=== PATIENT | male | born 1960 | race Caucasian/White ===

== ENCOUNTER 2017-03-11 21:27 | Inpatient (IN) | payer BC ==
[2017-03-11] MEDS ORDERED: SODIUM CHLORIDE 0.9% 1,000 ML IV STA ×2 (21:39)
[2017-03-11] MEDS ORDERED: SODIUM CHLORIDE 0.9% 500 ML IV STA (21:39)
[2017-03-11] MEDS ORDERED: ASPIRIN 81 MG CHEW PO STA (21:39)
[2017-03-11] MEDS ORDERED: DILTIAZEM 125 MG in SODIUM CHLORIDE 0.9% 100 ML IV ONE (21:39)
[2017-03-11] MEDS ORDERED: NITROGLYCERIN SL TABS 0.4 MG TAB SUBLINGUAL PRN (21:39)
[2017-03-11] MEDS ORDERED: HEPARIN SODIUM,PORCINE 5,000 UNIT/ML 1 ML VIAL IV PRN (21:39)
[2017-03-11] MEDS ORDERED: DILTIAZEM 5 MG/ML 5 ML VIAL IVP STA (21:39)
[2017-03-11] MEDS ORDERED: HEPARIN SODIUM,PORCINE 5,000 UNIT/ML 1 ML VIAL IV ONE (21:39)
--- NOTE | 2017-03-11 21:43 | ED ---
General Adult HPI - General Chief complaint: Arrhythmia/Palpitations Stated complaint: Palpitations Time Seen by Provider: 03/11/17 21:37 Source: patient, EMS, RN notes reviewed, old records reviewed Mode of arrival: EMS Limitations: no limitations - History of Present Illness Initial comments: This is a 56-year-old male to the ER for evaluation. This patient presents for evaluation of shortness of breath palpitations heart racing. Patient feels very anxious. Patient has history of high blood pressure costal denies drugs or alcohol denies smoking. Denies recent fever cough or congestion, patient has [place] of breath and possibly near syncopal episode earlier today. Patient states he may have had symptoms like this in his past but they did resolve. Patient still slightly weak, dizzy with palpitations. No chest pain. No recent travel history or sick contacts - Related Data Home Medications Medication Instructions Recorded Confirmed Aspirin [Adult Low Dose Aspirin EC] 81 mg PO HS 07/23/16 03/11/17 Enalapril [Vasotec] 5 mg PO DAILY 07/23/16 03/11/17 Ezetimibe/Simvastatin [Vytorin 1 tab PO HS 07/23/16 03/11/17 10-80 mg Tablet] Loratadine [Claritin] 10 mg PO DAILY PRN 07/23/16 03/11/17 Metoprolol Succinate [Toprol XL] 50 mg PO DAILY 07/23/16 03/11/17 [place]-3 Acid Ethyl Esters [Lovaza] 1 gm PO BID 07/23/16 03/11/17 Allergies Allergy/AdvReac Type Severity Reaction Status Date / Time TAPE Allergy Rash/Hives Uncoded 03/11/17 22:14 Review of Systems ROS Statement: Those systems with pertinent positive or pertinent negative responses have been documented in the HPI. ROS Other: All systems not noted in ROS Statement are negative. Past Medical History Past Medical History: Hyperlipidemia, Hypertension History of Any Multi-Drug Resistant Organisms: None Reported Past Surgical History: Heart Catheterization With Stent Additional Past Surgical History / Comment(s): thumb surgery, Past Psychological History: No Psychological Hx Reported Smoking Status: Never smoker Past Alcohol Use History: Occasional Past Drug Use History: None Reported General Exam Limitations: no limitations General appearance: alert, in no apparent distress, anxious Head exam: Present: atraumatic, normocephalic, normal inspection Eye exam: Present: normal appearance, PERRL, EOMI. Absent: scleral icterus, conjunctival injection, periorbital swelling ENT exam: Present: normal exam, mucous membranes moist Neck exam: Present: normal inspection. Absent: tenderness, meningismus, lymphadenopathy Respiratory exam: Present: normal lung sounds bilaterally. Absent: respiratory distress, wheezes, rales, rhonchi, stridor Cardiovascular Exam: Present: tachycardia, irregular rhythm, normal heart sounds. Absent: systolic murmur, diastolic murmur, rubs, gallop, clicks GI/Abdominal exam: Present: soft, normal bowel sounds. Absent: distended, tenderness, guarding, rebound, rigid Extremities exam: Present: normal inspection, full ROM, normal capillary refill. Absent: tenderness, pedal edema, joint swelling, calf tenderness Back exam: Present: normal inspection Neurological exam: Present: alert, oriented X3, CN II-XII intact Psychiatric exam: Present: normal affect, normal mood Skin exam: Present: warm, dry, intact, normal color. Absent: rash Course Vital Signs 03/11/17 03/11/17 21:31 22:19 Temperature 986 F H Pulse Rate 117 H 110 H Respiratory 20 20 Rate Blood Pressure 170/78 164/131 O2 Sat by Pulse 98 96 Oximetry - Reevaluation(s) Reevaluation #1: 03/11/17 23:01 At this time patient achieved adequate rate control Reevaluation #2: 03/11/17 23:01 Spoke with patient and family regarding diagnosis and prognosis, greater than 15 minutes and questions are answered EKG Findings - EKG Comments: EKG Findings:: EKG shows A. fib with RVR rate 121, QRS 90, QTC 400 Medical Decision Making - Medical Decision Making 56-year-old emergency room for evaluation of shortness of breath weakness dizziness lightheadedness and near syncopal. Patient found to be in A. fib with RVR, subjected to rate control, patient's heart rate is able to be controlled at this point. Patient will be admitted for telemetry and cardiology at observation, patient will be placed on anticoagulation - Lab Data Result diagrams: 03/11/17 21:50 Lab Results 03/11/17 Range/Units 21:50 WBC 7.2 (3.8-10.6) k/uL RBC 5.08 (4.30-5.90) m/uL Hgb 14.9 (13.0-17.5) gm/dL Hct 43.6 (39.0-53.0) % MCV 85.9 (80.0-100.0) fL MCH 29.3 (25.0-35.0) pg MCHC 34.1 (31.0-37.0) g/dL RDW 13.4 (11.5-15.5) % Plt Count 211 (150-450) k/uL Neutrophils % 60 % Lymphocytes % 25 % Monocytes % 7 % Eosinophils % 3 % Basophils % 2 % Neutrophils # 4.4 (1.3-7.7) k/uL Lymphocytes # 1.8 (1.0-4.8) k/uL Monocytes # 0.5 (0-1.0) k/uL Eosinophils # 0.2 (0-0.7) k/uL Basophils # 0.1 (0-0.2) k/uL Critical Care Time Critical Care Time: Yes Total Critical Care Time: 31 Disposition Clinical Impression: Atrial fibrillation, Atrial fibrillation with RVR, New onset a-fib Disposition: ADMITTED IP TO THIS HOSP Condition: Fair Referrals: Ronaldo Dunbar MD [Primary Care Provider] - 1-2 days
[2017-03-11] MEDS: HEPARIN SODIUM,PORCINE/D5W PMX 25,000 UNIT in DEXTROSE/WATER 1 500ML.BAG IV SCH (22:14)
[2017-03-11 22:37] LABS: Basophils # (A) 0.1 k/uL (0-0.2); Basophils % (A) 2 %; CH 28.6; CHCM 33.4; Eosinophils # (A) 0.2 k/uL (0-0.7); Eosinophils % (A) 3 %; HCT 43.6 % (39.0-53.0); HDW 2.49; HGB 14.9 gm/dL (13.0-17.5); Luc # (Auto) 0.28; Luc % (Auto) 4; Lymphocytes # (A) 1.8 k/uL (1.0-4.8); Lymphocytes % (A) 25 %; MCH 29.3 pg (25.0-35.0); MCHC 34.1 g/dL (31.0-37.0); MCV 85.9 fL (80.0-100.0); Mean Platelet Volume 7.1; Monocytes # (A) 0.5 k/uL (0-1.0); Monocytes % (A) 7 %; Neutrophils # (A) 4.4 k/uL (1.3-7.7); Neutrophils % (A) 60 %; RBC 5.08 m/uL (4.30-5.90); RDW 13.4 % (11.5-15.5); WBC 7.2 k/uL (3.8-10.6); WBC (Perox) 7.16
[2017-03-11 22:47] LABS: ALT 40 U/L (21-72); AST 33 U/L (17-59); Alkaline Phosphatase 70 U/L (38-126); Anion Gap 9 mmol/L; Blood Urea Nitrogen 19 mg/dL (9-20); Calcium 9.7 mg/dL (8.4-10.2); Carbon Dioxide 26 mmol/L (22-30); Chloride 103 mmol/L (98-107); Glucose 113 mg/dL (74-99); Magnesium 2.1 mg/dL (1.6-2.3); Non-African American GFR(MDRD) >60 (>60 ml/min/1.73 sqM); Potassium 4.3 mmol/L (3.5-5.1); Sodium 138 mmol/L (137-145); Total Bilirubin 1.1 mg/dL (0.2-1.3); Total Protein 7.1 g/dL (6.3-8.2)
[2017-03-11] MEDS ORDERED: LORazepam 2 MG/ML SYRINGE IV PRN (22:59)
[2017-03-11] MEDS ORDERED: LORazepam 2 MG/ML SYRINGE IV STA (22:59)
[2017-03-11 23:03] LABS: Creatine Kinase 111 U/L (55-170)
[2017-03-11 23:16] LABS: Creatine Kinase MB 1.1 ng/mL (0.0-2.4); Troponin I <0.012 ng/mL (0.000-0.034)
[2017-03-11 23:17] LABS: INR 0.9 (<1.1); Prothrombin Time 9.7 sec (9.0-12.0)
[2017-03-11 23:26] LABS: Partial Thromboplastin Time 21.2 sec (22.0-30.0)
[2017-03-12 01:25] VITALS: BMI 24.7
[2017-03-12 04:25] LABS: Mean Platelet Volume 6.8
[2017-03-12 04:36] LABS: Cholesterol 182 mg/dL (<200); HDL Cholesterol 48 mg/dL (40-60); Triglycerides 108 mg/dL (<150)
[2017-03-12 05:29] LABS: Troponin I 0.043 ng/mL (0.000-0.034)
[2017-03-12] MEDS: METOPROLOL TARTRATE 25 MG TAB PO SCH ×2 (08:03→22:45)
--- NOTE | 2017-03-12 09:33 | P.CRDCN ---
History of Present Illness Consult date: 03/12/17 Requesting physician: Ronaldo Dunbar Consult reason: atrial fibrillation Chief complaint: Palpitations History of present illness: This is a pleasant 56-year-old gentleman who follows regularly with Dr. Farrell in the office. He has a known history of coronary artery disease with prior stenting of the LAD in 2000, hypertension, hyperlipidemia, family history of premature coronary artery disease. He presents to the hospital on this occasion with symptoms of feeling his heart racing fast. He states that he was out at a shooting range with his son when the symptoms started. He checked his pulse and found that it was quite irregular and fast. At the symptoms persisted, he became more and more anxious, came to the hospital for further evaluation. EKG performed on arrival here showed atrial fibrillation with a rapid ventricular response. Blood pressure on arrival 170/70 with a heart rate of 120, 98% on room air. CBC 7.2, hemoglobin 14.9, platelet count 211, potassium 4.3, BUN 19, creatinine 0.9.Initial troponin 0.012, subsequent troponin 0.043. Magnesium level 2.1.TSH 2.3. He is currently on IV heparin and IV Cardizem. Continues to be in atrial fibrillation with a controlled ventricular response. Patient denies any prior history of atrial fibrillation, although he does state that he has occasional episodes where he feels he is having an anxiety attack, similar to how he felt yesterday. Past Medical History Past Medical History: Hyperlipidemia, Hypertension History of Any Multi-Drug Resistant Organisms: None Reported Past Surgical History: Heart Catheterization With Stent Additional Past Surgical History / Comment(s): thumb surgery, Past Anesthesia/Blood Transfusion Reactions: No Reported Reaction Date of Last Stent Placement:: March 2001 Past Psychological History: No Psychological Hx Reported Smoking Status: Never smoker Past Alcohol Use History: Occasional Past Drug Use History: None Reported - Past Family History Father History Unknown: Yes Mother Family Medical History: Hypertension Additional Family Medical History / Comment(s): pacemaker. at age 86 Sister(s) Family Medical History: Hyperlipidemia Medications and Allergies Home Medications Medication Instructions Recorded Confirmed Type Aspirin [Adult Low Dose Aspirin EC] 81 mg PO HS 07/23/16 03/11/17 History Enalapril [Vasotec] 5 mg PO DAILY 07/23/16 03/11/17 History Ezetimibe/Simvastatin [Vytorin 1 tab PO HS 07/23/16 03/11/17 History 10-80 mg Tablet] Loratadine [Claritin] 10 mg PO DAILY PRN 07/23/16 03/11/17 History Metoprolol Succinate [Toprol XL] 50 mg PO DAILY 07/23/16 03/11/17 History [place]-3 Acid Ethyl Esters [Lovaza] 1 gm PO BID 07/23/16 03/11/17 History Allergies Allergy/AdvReac Type Severity Reaction Status Date / Time TAPE Allergy Rash/Hives Uncoded 03/11/17 22:14 Physical Exam Vitals: Vital Signs Temp Pulse Pulse Resp BP BP Pulse Ox 03/12/17 08:00 97.6 F 98 18 131/67 98 03/12/17 04:00 98 F 59 L 16 100/58 98 03/12/17 00:39 66 16 138/81 96 03/12/17 00:18 98.6 F 68 18 112/55 97 03/11/17 23:47 82 18 134/63 97 03/11/17 23:38 98.2 F 72 18 173/72 98 03/11/17 22:19 110 H 20 164/131 96 Intake and Output 03/11/17 03/12/17 03/12/17 22:59 06:59 14:59 Intake Total 129.621 360 Output Total 500 Balance -370.379 360 Intake: Intake, IV Titration 129.621 Amount Heparin Sodium,Porcine/ 129.621 D5w Pmx 25,000 unit In Dextrose/Water 1 500ml. bag @ 12 UNITS/KG/HR 19. 59 mls/hr IV .Q24H [facility] Rx #:[id number] Oral 360 Output: Urine 500 Other: Voiding Method Toilet Toilet Urinal Urinal # Voids 1 Weight 86.2 kg PHYSICAL EXAMINATION: HEENT: Head is atraumatic, normocephalic. Pupils equal, round. Neck is supple. There is no elevated jugular venous pressure. HEART EXAMINATION: S1 and S2 irregularly irregular CHEST EXAMINATION: Lungs are clear to auscultation and precussion. No chest wall tenderness is noted on palpation or with deep breathing. ABDOMEN: Soft, nontender. Bowel sounds are heard. No organomegaly noted. EXTREMITIES: 2+ peripheral pulses with no evidence of peripheral edema and no calf tenderness noted. NEUROLOGIC patient is awake, alert and oriented -3. . Results 03/12/17 03:59 03/11/17 21:50 Cardiac Enzymes 03/11/17 03/11/17 03/12/17 Range/Units 21:50 21:50 03:59 AST 33 (17-59) U/L CK-MB (CK-2) 1.1 1.0 (0.0-2.4) ng/mL Troponin I <0.012 0.043 H* (0.000-0.034) ng/mL Coagulation 03/11/17 03/12/17 Range/Units 21:50 03:59 PT 9.7 (9.0-12.0) sec APTT 21.2 L 33.7 H (22.0-30.0) sec Lipids 03/12/17 Range/Units 03:59 Triglycerides 108 (<150) mg/dL Cholesterol 182 (<200) mg/dL HDL Cholesterol 48 (40-60) mg/dL CBC 03/11/17 03/12/17 Range/Units 21:50 03:59 WBC 7.2 (3.8-10.6) k/uL RBC 5.08 (4.30-5.90) m/uL Hgb 14.9 (13.0-17.5) gm/dL Hct 43.6 (39.0-53.0) % Plt Count 211 195 (150-450) k/uL Comprehensive Metabolic Panel 03/11/17 Range/Units 21:50 Sodium 138 (137-145) mmol/L Potassium 4.3 (3.5-5.1) mmol/L Chloride 103 (98-107) mmol/L Carbon Dioxide 26 (22-30) mmol/L BUN 19 (9-20) mg/dL Creatinine 0.99 (0.66-1.25) mg/dL Glucose 113 H (74-99) mg/dL Calcium 9.7 (8.4-10.2) mg/dL AST 33 (17-59) U/L ALT 40 (21-72) U/L Alkaline Phosphatase 70 (38-126) U/L Total Protein 7.1 (6.3-8.2) g/dL Albumin 4.4 (3.5-5.0) g/dL Current Medications Generic Name Dose Route Start Last Admin Trade Name Freq PRN Reason Stop Dose Admin Aspirin 325 mg 03/13/17 09:00 Aspirin PO DAILY [facility] Heparin Sodium (Porcine) 0 unit 03/11/17 21:39 03/12/17 04:50 Heparin IV 4,000 unit Q6HR PRN Administration Low PTT Protocol Diltiazem HCl 125 mg/ Sodium 125 mls @ 5 mls/hr 03/11/17 21:39 03/11/17 22:20 Chloride IV 03/12/17 21:38 5 mg/hr .Q24H ONE 5 mls/hr 5 MG/HR Administration Heparin Sodium/Dextrose 25,000 500 mls @ 19.59 mls/hr 03/11/17 21:45 04:51 unit/ IV Solution IV 15 units/kg/hr .Q24H YOVANNY 24.49 mls/hr Protocol Titration 12 UNITS/KG/HR Lorazepam 1 mg 03/11/17 22:59 Ativan IV Q4HR PRN Anxiety Metoprolol Tartrate 25 mg 03/12/17 09:00 03/12/17 08:03 Lopressor PO 25 mg BID YOVANNY Administration Nitroglycerin 0.4 mg 03/11/17 21:39 Nitrostat SUBLINGUAL Q5M PRN Chest Pain Intake and Output 03/11/17 03/12/17 03/12/17 22:59 06:59 14:59 Intake Total 129.621 360 Output Total 500 Balance -370.379 360 Intake: Intake, IV Titration 129.621 Amount Heparin Sodium,Porcine/ 129.621 D5w Pmx 25,000 unit In Dextrose/Water 1 500ml. bag @ 12 UNITS/KG/HR 19. 59 mls/hr IV .Q24H [facility] Rx #:[id number] Oral 360 Output: Urine 500 Other: Voiding Method Toilet Toilet Urinal Urinal # Voids 1 Weight 86.2 kg 03/12/17 03:59 03/11/17 21:50 EKG Interpretations (text) EKG shows atrial fibrillation with a rapid ventricular response. Assessment and Plan Plan: Assessment and plan #1 atrial fibrillation with rapid ventricular response, appears to be of new onset. Normal TSH. #2 known history of coronary artery disease with prior LAD stenting in 2000, at that time patient also had a 50% lesion in the circumflex. #3 hypertension #4 hyperlipidemia #5 family history of premature coronary artery disease Plan We will obtain an echocardiogram with Doppler study. TSH was normal. Decrease aspirin to 81 mg daily. Continue IV heparin. If the patient's LV function is normal, consider giving the patient a dose of Rythmol. Further recommendations will be based on these findings and the patient's clinical course. DNP note has been reviewed, I agree with a documented findings and plan of care. Patient was seen and examined.
[2017-03-12 12:10] LABS: Creatine Kinase MB 1.1 ng/mL (0.0-2.4); Troponin I 0.018 ng/mL (0.000-0.034)
[2017-03-12] MEDS ORDERED: Phosphorus Replacement Protoco 1 EACH MISC MISCELLANE PRN (12:53)
[2017-03-12] MEDS: SODIUM PHOSPHATE 10 MMOL in SODIUM CHLORIDE 0.9% 250 ML IVPB SCH ×2 (17:28→18:46)
[2017-03-12] MEDS ORDERED: ATORVASTATIN 80 MG TAB PO SCH (21:00)
[2017-03-12] MEDS: HEPARIN SODIUM,PORCINE/D5W PMX 25,000 UNIT in DEXTROSE/WATER 1 500ML.BAG IV SCH (22:54)
[2017-03-13 07:24] LABS: Basophils % (A) 0 %; CH 28.6; CHCM 32.7; Eosinophils # (A) 0.2 k/uL (0-0.7); Eosinophils % (A) 5 %; HCT 41.4 % (39.0-53.0); HDW 2.42; HGB 13.4 gm/dL (13.0-17.5); Luc # (Auto) 0.17; Luc % (Auto) 4; Lymphocytes % (A) 44 %; MCH 28.5 pg (25.0-35.0); MCHC 32.4 g/dL (31.0-37.0); MCV 87.9 fL (80.0-100.0); Mean Platelet Volume 7.3; Monocytes # (A) 0.3 k/uL (0-1.0); Monocytes % (A) 7 %; Neutrophils # (A) 1.8 k/uL (1.3-7.7); Neutrophils % (A) 40 %; RBC 4.71 m/uL (4.30-5.90); RDW 13.5 % (11.5-15.5); WBC 4.5 k/uL (3.8-10.6); WBC (Perox) 4.51
[2017-03-13 08:06] LABS: Anion Gap 7 mmol/L; Blood Urea Nitrogen 13 mg/dL (9-20); Calcium 9.1 mg/dL (8.4-10.2); Carbon Dioxide 26 mmol/L (22-30); Chloride 108 mmol/L (98-107); Glucose 98 mg/dL (74-99); Non-African American GFR(MDRD) >60 (>60 ml/min/1.73 sqM); Phosphorous 3.6 mg/dL (2.5-4.5); Potassium 4.4 mmol/L (3.5-5.1); Sodium 141 mmol/L (137-145)
--- NOTE | 2017-03-13 08:23 | P.HPIM ---
History of Present Illness H&P Date: 03/12/17 Chief Complaint: Shortness of breath, heart palpitations Patient is a 56-year-old male, patient of Dr. Dunbar in the outpatient setting, with medical history significant for coronary artery disease with stent placement, hyperlipidemia and hypertension. Patient presented to the emergency department with complaints of heart palpitations and shortness of breath and feeling anxious. Patient states he was out of the shooting range with his son when symptoms started. No history of recent illness , fevers, chills, chest pain, abdominal pain, leg swelling or leg pain. No previous history of atrial fibrillation. EKG in the emergency department with evidence of atrial fibrillation with a rapid ventricular response. Patient was found to have hypophosphatemia with a phosphorus of 2, TSH within normal range of 2.3, troponins 0.012, 0.043. Blood pressure on arrival 170/78. Patient was started on IV Cardizem and IV heparin and admitted to the medical floor with consult to cardiology. Patient is currently in atrial fibrillation with controlled ventricular rate. Blood pressure 131/67. Echocardiogram with Doppler pending. Past Medical History Past Medical History: Hyperlipidemia, Hypertension History of Any Multi-Drug Resistant Organisms: None Reported Past Surgical History: Heart Catheterization With Stent Additional Past Surgical History / Comment(s): thumb surgery, Past Anesthesia/Blood Transfusion Reactions: No Reported Reaction Date of Last Stent Placement:: March 2001 Past Psychological History: No Psychological Hx Reported Smoking Status: Never smoker Past Alcohol Use History: Occasional Past Drug Use History: None Reported - Past Family History Father History Unknown: Yes Mother Family Medical History: Hypertension Additional Family Medical History / Comment(s): pacemaker. at age 86 Sister(s) Family Medical History: Hyperlipidemia Medications and Allergies Home Medications Medication Instructions Recorded Confirmed Type Aspirin [Adult Low Dose Aspirin EC] 81 mg PO HS 07/23/16 03/11/17 History Enalapril [Vasotec] 5 mg PO DAILY 07/23/16 03/11/17 History Ezetimibe/Simvastatin [Vytorin 1 tab PO HS 07/23/16 03/11/17 History 10-80 mg Tablet] Loratadine [Claritin] 10 mg PO DAILY PRN 07/23/16 03/11/17 History Metoprolol Succinate [Toprol XL] 50 mg PO DAILY 07/23/16 03/11/17 History [place]-3 Acid Ethyl Esters [Lovaza] 1 gm PO BID 07/23/16 03/11/17 History Allergies Allergy/AdvReac Type Severity Reaction Status Date / Time TAPE Allergy Rash/Hives Uncoded 03/11/17 22:14 Physical Exam Vitals: Vital Signs Temp Pulse Pulse Resp BP BP Pulse Ox 03/12/17 12:00 98.1 F 66 16 112/59 96 03/12/17 08:00 97.6 F 98 18 131/67 98 03/12/17 04:00 98 F 59 L 16 100/58 98 03/12/17 00:39 66 16 138/81 96 03/12/17 00:18 98.6 F 68 18 112/55 97 03/11/17 23:47 82 18 134/63 97 03/11/17 23:38 98.2 F 72 18 173/72 98 03/11/17 22:19 110 H 20 164/131 96 Intake and Output 03/11/17 03/12/17 03/12/17 22:59 06:59 14:59 Intake Total 129.621 360 Output Total 500 Balance -370.379 360 Intake: Intake, IV Titration 129.621 Amount Heparin Sodium,Porcine/ 129.621 D5w Pmx 25,000 unit In Dextrose/Water 1 500ml. bag @ 12 UNITS/KG/HR 19. 59 mls/hr IV .Q24H [facility] Rx #:[id number] Oral 360 Output: Urine 500 Other: Voiding Method Toilet Toilet Urinal Urinal # Voids 1 Weight 86.2 kg GENERAL: Pt awake and alert, well-appearing, well-nourished, and in no acute distress. HEAD: Atraumatic, normocephalic. EYES: Pupils equal, round, and reactive to light, sclera anicteric, conjunctiva are normal. ENT: Moist mucous membranes. NECK:Supple without lymphadenopathy or JVD. LUNGS: Breath sounds clear to auscultation bilaterally. No wheezes, rales, or rhonchi. HEART: Heart S1, S2, no S3 or S4. Regular rate and rhythm. No murmurs, rubs or gallops. ABDOMEN: Soft, nontender, nondistended, normoactive bowel sounds. No guarding, no rebound. No masses or organomegaly appreciated. EXTREMITIES: 2+ peripheral pulses. No edema. No calf tenderness. NEUROLOGICAL: Pt oriented x 3. No focal deficits noted. Strength and sensation grossly intact. PSYCH: Normal mood, normal affect. SKIN: Warm, dry, intact. Normal turgor. No rashes or lesions. Results CBC & Chem 7: 03/12/17 03:59 03/11/17 21:50 Labs: Abnormal Lab Results - Last 24 Hours (Table) 03/11/17 03/11/17 03/12/17 Range/Units 21:50 21:50 03:59 APTT 21.2 L 33.7 H (22.0-30.0) sec Glucose 113 H (74-99) mg/dL Phosphorus 2.0 L (2.5-4.5) mg/dL Troponin I (0.000-0.034) ng/mL LDL Cholesterol, Calc (0-99) mg/dL 03/12/17 03/12/17 03/12/17 Range/Units 03:59 03:59 10:48 APTT 48.4 H (22.0-30.0) sec Glucose (74-99) mg/dL Phosphorus (2.5-4.5) mg/dL Troponin I 0.043 H* (0.000-0.034) ng/mL LDL Cholesterol, Calc 112 H (0-99) mg/dL Thrombosis Risk Factor Assmnt - DVT/VTE Prophylaxis DVT/VTE Prophylaxis: Pharmacologic Prophylaxis ordered - Choose All That Apply Any of the Below Risk Factors Present?: Yes Each Factor Represents 1 point: Age 41-60 years Other Risk Factors: No Other congenital or acquired thrombophilia - If yes, enter type in comment: No Thrombosis Risk Factor Assessment Total Risk Factor Score: 1 Thrombosis Risk Factor Assessment Level: Low Risk Assessment and Plan Plan: Impression and plan: 1. New onset atrial fibrillation with rapid ventricular response, present on admission. Cardiology service on consult, recommendations noted. Continue Cardizem drip at 5 mg per hour, continue heparin drip, continue cardiac monitoring. Echocardiogram pending. 2. Coronary artery disease with prior stent placement to LAD in 2000 with known 50% lesion and circumflex. Continue aspirin 81 mg daily. 3. Hypertension. Continue metoprolol 25 mg by mouth twice a day. 4. Hyperlipidemia. Continue Lipitor 80 mg at night, continue Zetia 10 mg daily. 5. Hypophosphatemia, present on admission. Replace phosphorus per protocol. 6. Anxiety suspect associated with atrial fibrillation. Continue Ativan 1 mg IV every 4 hours when necessary. Continue to monitor patient. Continue current medications. Continue continue DVT prophylaxis. Continue to follow cardiology service. Await result of echocardiogram. The above impression and plan have been discussed and directed by Dr. Gloria. More PERALTA acting as scribe for Dr. Gloria.
[2017-03-13] MEDS: METOPROLOL TARTRATE 25 MG TAB PO SCH (08:28)
[2017-03-13] MEDS ORDERED: ASPIRIN 81 MG CHEW PO SCH (09:00)
[2017-03-13] MEDS ORDERED: EZETIMIBE 10 MG TAB PO SCH (09:00)
[2017-03-13] MEDS ORDERED: ASPIRIN 325 MG TAB PO SCH (09:00)
[2017-03-13 09:29] VITALS: RESP 18
[2017-03-13 12:15] VITALS: BP 151/75; PULSE 49; TEMP 96.8
--- NOTE | 2017-03-13 13:31 | P.PN ---
Subjective Principal diagnosis: Paroxysmal atrial fibrillation Patient is a 56-year-old male, patient of Dr. Dunbar in the outpatient setting, with medical history significant for coronary artery disease with stent placement, hyperlipidemia and hypertension. Patient presented to the emergency department with complaints of heart palpitations and shortness of breath and feeling anxious. Patient states he was out of the shooting range with his son when symptoms started. No history of recent illness , fevers, chills, chest pain, abdominal pain, leg swelling or leg pain. No previous history of atrial fibrillation. EKG in the emergency department with evidence of atrial fibrillation with a rapid ventricular response. Patient was found to have hypophosphatemia with a phosphorus of 2, TSH within normal range of 2.3, troponins 0.012, 0.043. Blood pressure on arrival 170/78. Patient was started on IV Cardizem and IV heparin and admitted to the medical floor with consult to cardiology. Patient is currently in atrial fibrillation with controlled ventricular rate. Blood pressure 131/67. Echocardiogram with Doppler pending. 03/13/2017: Patient is reevaluated on selective care unit where he is currently laying in bed. According to chart and patient, patient converted into normal sinus rhythm around 2 PM yesterday and has stayed in normal sinus rhythm. Patient is feeling well. Has no complaints. Labs reviewed, unremarkable. Patient remains on IV heparin. IV Cardizem has been discontinued. Echocardiogram results pending. Awaiting cardiology recommendations prior to discharge. Objective - Vital Signs Vital signs: Vital Signs Temp 96.8 F L 03/13/17 12:00 Pulse 49 L 03/13/17 12:00 Resp 18 03/13/17 12:00 BP 151/75 03/13/17 12:00 Pulse Ox 99 03/13/17 12:00 Intake & Output 03/12/17 03/13/17 03/13/17 18:59 06:59 18:59 Intake Total 720 370.379 240 Output Total 1800 2200 900 Balance -0986 -1829.621 -660 Weight 82.6 kg Intake: Intake, IV Titration 370.379 0 Amount Heparin Sodium,Porcine/ 370.379 D5w Pmx 25,000 unit In Dextrose/Water 1 500ml. bag @ 12 UNITS/KG/HR 19. 59 mls/hr IV .Q24H [facility] Rx #:[id number] Sodium Phosphate 10 mmol 0 In Sodium Chloride 0.9% 250 ml @ 125 mls/hr IVPB Q2H [facility] Rx#:[id number] Oral 720 240 Output: Urine 1800 2200 900 Other: Voiding Method Toilet Toilet Toilet Urinal Urinal Urinal # Voids 4 # Bowel Movements 0 - Exam GENERAL: Pt awake and alert, well-appearing, well-nourished, and in no acute distress. HEAD: Atraumatic, normocephalic. EYES: Pupils equal, round, and reactive to light, sclera anicteric, conjunctiva are normal. ENT: Moist mucous membranes. NECK:Supple without lymphadenopathy or JVD. LUNGS: Breath sounds clear to auscultation bilaterally. No wheezes, rales, or rhonchi. HEART: Heart S1, S2, no S3 or S4. Regular rate and rhythm. No murmurs, rubs or gallops. ABDOMEN: Soft, nontender, nondistended, normoactive bowel sounds. No guarding, no rebound. No masses or organomegaly appreciated. EXTREMITIES: 2+ peripheral pulses. No edema. No calf tenderness. NEUROLOGICAL: Pt oriented x 3. No focal deficits noted. Strength and sensation grossly intact. PSYCH: Normal mood, normal affect. SKIN: Warm, dry, intact. Normal turgor. No rashes or lesions. - Labs CBC & Chem 7: 03/13/17 06:55 03/13/17 06:45 Labs: Abnormal Lab Results - Last 24 Hours (Table) 03/13/17 03/13/17 Range/Units 06:45 06:55 APTT 40.1 H (22.0-30.0) sec Chloride 108 H (98-107) mmol/L Assessment and Plan Plan: Impression and plan: 1. New onset paroxysmal atrial fibrillation with rapid ventricular response, present on admission, currently in sinus rhythm. Cardiology service on consult , recommendations noted. Patient remains on IV heparin. Continue cardiac monitoring. Echocardiogram pending. 2. Coronary artery disease with prior stent placement to LAD in 2000 with known 50% lesion and circumflex. Continue aspirin 81 mg daily. 3. Hypertension. Continue metoprolol 25 mg by mouth twice a day. 4. Hyperlipidemia. Continue Lipitor 80 mg at night, continue Zetia 10 mg daily. 5. Hypophosphatemia, present on admission, resolved. 6. Anxiety suspect associated with atrial fibrillation. Continue Ativan 1 mg IV every 4 hours when necessary. Continue to monitor patient. Continue current medications. Continue continue DVT prophylaxis. Continue to follow cardiology service. Possible discharge later today. The above impression and plan have been discussed and directed by Dr. Gloria. More PERALTA acting as scribe for Dr. Gloria.
--- NOTE | 2017-03-13 15:33 | P.PN ---
Subjective Principal diagnosis: Paroxysmal atrial fibrillation with RVR This is a pleasant 56-year-old gentleman who follows with Dr. Farrell in the office. 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 Presented to the hospital with symptoms of feeling his heart racing and overall not feeling well. On checking his pulse he found that it was quite irregular and fast. He was hooked up to a 12-lead ECG machine outpatient and was found to be in atrial fibrillation with rapid ventricular response. EKG performed on arrival here also showed atrial fibrillation with rapid ventricular response. He was put on IV Cardizem and IV heparin. Inverted to sinus rhythm yesterday. He is maintaining sinus rhythm. He is feeling quite a bit better. Objective - Vital Signs Vital signs: Vital Signs Temp 96.8 F L 03/13/17 12:00 Pulse 49 L 03/13/17 12:00 Resp 18 03/13/17 12:00 BP 151/75 03/13/17 12:00 Pulse Ox 99 03/13/17 12:00 Intake & Output 03/12/17 03/13/17 03/13/17 18:59 06:59 18:59 Intake Total 720 370.379 480 Output Total 1800 2200 900 Balance -9650 -2669.621 -420 Weight 82.6 kg Intake: Intake, IV Titration 370.379 0 Amount Heparin Sodium,Porcine/ 370.379 D5w Pmx 25,000 unit In Dextrose/Water 1 500ml. bag @ 12 UNITS/KG/HR 19. 59 mls/hr IV .Q24H YOVANNY Rx #:[id number] Sodium Phosphate 10 mmol 0 In Sodium Chloride 0.9% 250 ml @ 125 mls/hr IVPB Q2H YOVANNY Rx#:[id number] Oral 720 480 Output: Urine 1800 2200 900 Other: Voiding Method Toilet Toilet Toilet Urinal Urinal Urinal # Voids 4 # Bowel Movements 0 - Exam PHYSICAL EXAMINATION: HEENT: Head is atraumatic, normocephalic. Pupils equal, round. Neck is supple. There is no elevated jugular venous pressure. HEART EXAMINATION: Heart sounds regular, S1 and S2 normal. No murmur or gallop heard. CHEST EXAMINATION: Lungs are clear to auscultation and precussion. No chest wall tenderness is noted on palpation or with deep breathing. ABDOMEN: Soft, nontender. Bowel sounds are heard. No organomegaly noted. EXTREMITIES: 2+ peripheral pulses with no evidence of peripheral edema and no calf tenderness noted. NEUROLOGIC patient is awake, alert and oriented x3. . - Labs CBC & Chem 7: 03/13/17 06:55 03/13/17 06:45 Labs: Abnormal Lab Results - Last 24 Hours (Table) 03/13/17 03/13/17 Range/Units 06:45 06:55 APTT 40.1 H (22.0-30.0) sec Chloride 108 H (98-107) mmol/L Assessment and Plan Plan: Assessment and plan #1 paroxysmal atrial fibrillation with rapid ventricular response #2 known history of coronary artery disease with prior LAD stenting in 2000 and known 50% lesion in the circumflex #3 hypertension #4 hyperlipidemia #5 family history of premature coronary artery disease Cardiac standpoint, 2-D echo with Doppler was obtained, awaiting results. TSH was normal. Medications were reviewed and will continue the same. Patient will see Dr. Farrell in the office on March 18 at 2:30 PM. Long-term anticoagulation to be discussed as an outpatient. WAY INSPECTOR note has been reviewed, I agree with a documented findings and plan of care. Patient was seen and examined.
--- NOTE | 2017-03-13 15:43 | P.DS ---
Providers Date of admission: 03/11/17 21:39 Expected date of discharge: 03/13/17 Attending physician: Ronaldo Dunbar Consults: Cardiology Primary care physician: Ronaldo Dunbar [facility] Hospital Course: Patient is a 56-year-old male, patient of Dr. Dunbar in the outpatient setting, with medical history significant for coronary artery disease with stent placement, hyperlipidemia and hypertension. Patient presented to the emergency department with complaints of heart palpitations and shortness of breath and feeling anxious. Patient states he was [place] the [place] with his son when symptoms started. No history of recent illness , fevers, chills, chest pain, abdominal pain, leg swelling or leg pain. No previous history of atrial fibrillation. EKG in the emergency department with evidence of atrial fibrillation with a rapid ventricular response. Patient was found to have hypophosphatemia with a phosphorus of 2, TSH within normal range of 2.3, troponins 0.012, 0.043. Blood pressure on arrival 170/78. Patient was started on IV Cardizem and IV heparin and admitted to the medical floor with consult to cardiology. Patient is currently in atrial fibrillation with controlled ventricular rate. Blood pressure 131/67. Echocardiogram with Doppler pending. Patient converted into normal sinus rhythm and IV heparin and IV Cardizem was discontinued. From a cardiology standpoint, patient was stable for discharge to home with follow-up in the outpatient setting where they will talk about possible anticoagulation. Patient was felt stable from a medical standpoint for discharge to home with follow-up in the outpatient setting. Discharge diagnoses: 1. New onset paroxysmal atrial fibrillation with rapid ventricular response, present on admission, currently in sinus rhythm. 2. Coronary artery disease with prior stent placement to LAD in 2000 with known 50% lesion and circumflex. 3. Hypertension. 4. Hyperlipidemia. 5. Hypophosphatemia, present on admission, resolved. 6. Anxiety suspect associated with atrial fibrillation. The above impression and plan have been discussed and directed by Dr. Gloria. More PERALTA acting as scribe for Dr. Gloria. Pertinent Studies: EKG; echocardiogram with Doppler Patient Condition at Discharge: Good Plan - Discharge Summary New Discharge Prescriptions: Metoprolol Tartrate [Lopressor] 25 mg PO BID #60 tab Discharge Medication List Aspirin [Adult Low Dose Aspirin EC] 81 mg PO HS 07/23/16 [History] Ezetimibe/Simvastatin [Vytorin 10-80 mg Tablet] 1 tab PO HS 07/23/16 [History] Loratadine [Claritin] 10 mg PO DAILY PRN 07/23/16 [History] [place]-3 Acid Ethyl Esters [Lovaza] 1 gm PO BID 07/23/16 [History] Metoprolol Tartrate [Lopressor] 25 mg PO BID #60 tab 03/13/17 [Rx] Follow up Appointment(s)/Referral(s): Samm Farrell MD [STAFF PHYSICIAN] - 03/18/17 2:30 pm Ronaldo Dunbar MD [Primary Care Provider] - 1-2 days Discharge Disposition: HOME SELF-CARE
--- NOTE | 2017-03-18 15:56 | ECHOF ---
Referral Reason:afib MEASUREMENTS -------- HEIGHT: 182.9 cm WEIGHT: 86.2 kg BP: 131/67 RVIDd: 2.7 cm (< 3.3) IVSd: 1.2 cm (0.6 - 1.1) LVIDd: 4.8 cm (3.9 - 5.3) LVPWd: 1.2 cm (0.6 - 1.1) IVSs: 1.3 cm LVIDs: 3.4 cm LVPWs: 1.3 cm LAESV Index (A-L): 30.39 ml/m Ao Diam: 3.3 cm (2.0 - 3.7) AV Cusp: 1.6 cm (1.5 - 2.6) LA Diam: 3.3 cm (2.7 - 3.8) MV EXCURSION: 20.824 mm (> 18.000) MV EF SLOPE: 226 mm/s (70 - 150) EPSS: 0.5 cm RAP: 5.00 mmHg RVSP: 15.42 mmHg FINDINGS -------- Atrial fibrillation. This was a technically good study. There is mild concentric left ventricular hypertrophy. Overall left ventricular systolic function is normal with, an EF between 55 - 60 %. The right ventricle is normal in size. The right ventricular systolic function is normal. LA is midly dilated 29-33ml/m2. The right atrium is normal in size. Aortic valve is trileaflet and is mildly thickened. There is no evidence of aortic regurgitation. There is no evidence of aortic stenosis. The mitral valve leaflets are mildly thickened. There is trace mitral regurgitation. Trace tricuspid regurgitation present. There is no evidence of pulmonary hypertension. The right ventricular systolic pressure, as measured by Doppler, is 15.42mmHg. The pulmonic valve is normal. The aortic root size is normal. There is no pericardial effusion. CONCLUSIONS -------- 1. Atrial fibrillation. 2. The right ventricular systolic pressure, as measured by Doppler, is 15.42mmHg. 3. The aortic root size is normal. 4. There is no pericardial effusion. 5. This was a technically good study. 6. There is mild concentric left ventricular hypertrophy. 7. Overall left ventricular systolic function is normal with, an EF between 55 - 60 %. 8. LA is midly dilated 29-33ml/m2. 9. Aortic valve is trileaflet and is mildly thickened. 10. The mitral valve leaflets are mildly thickened. 11. There is trace mitral regurgitation. 12. Trace tricuspid regurgitation present. [employer]ADI[employer] CONVERTER OPERATOR: Yovana Moran RDCS
== END 2017-03-13 18:13 | disposition home or self-care (01) | DRG 310 ==
LOC: EC 21:27 → 6SEL 21:39
PROVIDERS: ADMIT Family Medicine; ATTEND Family Medicine
DX: I48.0 Paroxysmal atrial fibrillation (principal); E83.39 Other disorders of phosphorus metabolism; I10 Essential (primary) hypertension; E78.5 Hyperlipidemia, unspecified; F41.9 Anxiety disorder, unspecified; I25.10 Atherosclerotic heart disease of native coronary artery without angina pectoris; Z95.5 Presence of coronary angioplasty implant and graft; Z79.82 Long term (current) use of aspirin; Z79.899 Other long term (current) drug therapy; Z82.49 Family history of ischemic heart disease and other diseases of the circulatory system
CPT/HCPCS: 36415; 80048; 80053; 80061; 82550; 82553; 83735; 84100; 84443; 84484; 85025; 85049; 85610; 85730; 93005; 93306; 96365; 96366; 96368; 96375; 96376; 99291

== ENCOUNTER 2020-07-21 11:21 | Emergency (ER) | payer BC ==
[2020-07-21 11:32] VITALS: BP 158/96; PULSE 61; RESP 16; TEMP 98.6
[2020-07-21] MEDS ORDERED: LORazepam 2 MG/ML INJ IM STA (11:46)
--- NOTE | 2020-07-21 11:48 | ED ---
General Adult HPI - General Chief complaint: Anxiety Stated complaint: Panic Attack Time Seen by Provider: 07/21/20 11:30 Source: patient, RN notes reviewed, old records reviewed Mode of arrival: wheelchair Limitations: no limitations - History of Present Illness Initial comments: This is a 59-year-old male who presents emergency department stating that he has been suffering from anxiety for quite a few years but it's been getting worse over the last couple weeks since he's bottom Home. Patient states he has at least one panic attack a day if not more. Patient denies any difficulty breathing chest pain or palpitation. Patient denies any fever chills or cough. Patient denies any abdominal pain patient denies nausea vomiting or diarrhea patient states he has had anxiety for years but more recently with retiring and swelling of his home feels as though that is causing him more anxiety. - Related Data Home Medications Medication Instructions Recorded Confirmed Aspirin [Adult Low Dose Aspirin EC] 81 mg PO HS 07/23/16 03/11/17 Ezetimibe/Simvastatin [Vytorin 1 tab PO HS 07/23/16 03/11/17 10-80 mg Tablet] Loratadine [Claritin] 10 mg PO DAILY PRN 07/23/16 03/11/17 [place]-3 Acid Ethyl Esters [Lovaza] 1 gm PO BID 07/23/16 03/11/17 Previous Rx's Medication Instructions Recorded Metoprolol Tartrate [Lopressor] 25 mg PO BID #60 tab 03/13/17 ALPRAZolam [Xanax] 0.25 mg PO Q8HR PRN 3 Days #21 tab 07/21/20 Allergies Allergy/AdvReac Type Severity Reaction Status Date / Time TAPE Allergy Rash/Hives Uncoded 07/21/20 11:32 Review of Systems ROS Statement: Those systems with pertinent positive or pertinent negative responses have been documented in the HPI. ROS Other: All systems not noted in ROS Statement are negative. Past Medical History Past Medical History: Hyperlipidemia, Hypertension History of Any Multi-Drug Resistant Organisms: None Reported Past Surgical History: Heart Catheterization With Stent Additional Past Surgical History / Comment(s): thumb surgery, Past Anesthesia/Blood Transfusion Reactions: No Reported Reaction Date of Last Stent Placement:: March 2001 Past Psychological History: No Psychological Hx Reported Smoking Status: Never smoker Past Alcohol Use History: Occasional Past Drug Use History: None Reported - Past Family History Father History Unknown: Yes Mother Family Medical History: Hypertension Additional Family Medical History / Comment(s): pacemaker. at age 86 Sister(s) Family Medical History: Hyperlipidemia General Exam - General Exam Comments Initial Comments: GENERAL: Patient is well-developed and well-nourished. Patient is nontoxic and well- hydrated and is in mild distress. ENT: Neck is soft and supple. No significant lymphadenopathy is noted. Oropharynx is clear. Moist mucous membranes. Neck has full range of motion without eliciting any pain. EYES: The sclera were anicteric and conjunctiva were pink and moist. Extraocular movements were intact and pupils were equal round and reactive to light. Eyelids were unremarkable. PULMONARY: Unlabored respirations. Good breath sounds bilaterally. No audible rales r honchi or wheezing was noted. CARDIOVASCULAR: There is a regular rate and rhythm without any murmurs gallops or rubs. ABDOMEN: Soft and nontender with normal bowel sounds. SKIN: Skin is clear with no lesions or rashes and otherwise unremarkable. NEUROLOGIC: Patient is alert and oriented x3. Cranial nerves II through XII are grossly intact. Motor and sensory are also intact. Normal speech, volume and content. Symmetrical smile. MUSCULOSKELETAL: Normal extremities with adequate strength and full range of motion. LYMPHATICS: No significant lymphadenopathy is noted PSYCHIATRIC: Patient is very anxious Limitations: no limitations Course Vital Signs 07/21/20 07/21/20 11:28 12:08 Temperature 98.6 F 98.6 F Pulse Rate 61 61 Respiratory 16 16 Rate Blood Pressure 158/96 158/96 O2 Sat by Pulse 99 99 Oximetry Disposition Clinical Impression: Acute anxiety Disposition: HOME SELF-CARE Instructions (If sedation given, give patient instructions): Generalized Anxiety Disorder (ED) Prescriptions: ALPRAZolam [Xanax] 0.25 mg PO Q8HR PRN 3 Days #21 tab PRN Reason: Anxiety Is patient prescribed a controlled substance at d/c from ED?: Yes When asked, does pt state using other controlled substances?: No Referrals: Ronaldo Dunbar MD [Primary Care Provider] - 1-2 days
== END 2020-07-21 12:09 | disposition home or self-care (01) ==
LOC: EC 11:21
DX: F41.9 Anxiety disorder, unspecified (principal); E78.5 Hyperlipidemia, unspecified; Z79.82 Long term (current) use of aspirin; Z79.899 Other long term (current) drug therapy; Z91.09 Other allergy status, other than to drugs and biological substances
CPT/HCPCS: 99283; 96372; J2060

== ENCOUNTER 2021-11-09 10:27 | Emergency (ER) | payer BC ==
[2021-11-09 11:05] VITALS: RESP 18
--- NOTE | 2021-11-09 11:20 | ED ---
General Adult HPI - General Chief complaint: Fever Stated complaint: N/V,Headache,Fatigue Time Seen by Provider: 11/09/21 11:10 Source: patient, RN notes reviewed, old records reviewed Mode of arrival: ambulatory Limitations: no limitations - History of Present Illness Initial comments: 61-year-old well-appearing male presents to the emergency room with complaints of 9 days of body aches, fatigue, nausea and fever. Patient states that his symptoms started on October 31. He has not had any nausea or vomiting or fevers today. He states that he is feeling better and not getting worse. He has not been vaccinated against coronavirus. He is not sure if he wants to do the monoclonal antibody infusion if he is positive. -: days(s) (9) Severity scale (1-10): 0 Consistency: now resolved Associated Symptoms: fever/chills, malaise, other (body aches) Treatments Prior to Arrival: none - Related Data Home Medications Medication Instructions Recorded Confirmed Aspirin [Adult Low Dose Aspirin EC] 81 mg PO HS 07/23/16 03/11/17 Ezetimibe/Simvastatin [Vytorin 1 tab PO HS 07/23/16 03/11/17 10-80 mg Tablet] Loratadine [Claritin] 10 mg PO DAILY PRN 07/23/16 03/11/17 [place]-3 Acid Ethyl Esters [Lovaza] 1 gm PO BID 07/23/16 03/11/17 Previous Rx's Medication Instructions Recorded Metoprolol Tartrate [Lopressor] 25 mg PO BID #60 tab 03/13/17 ALPRAZolam [Xanax] 0.25 mg PO Q8HR PRN 3 Days #21 tab 07/21/20 Allergies Allergy/AdvReac Type Severity Reaction Status Date / Time TAPE Allergy Rash/Hives Uncoded 07/21/20 11:32 Review of Systems ROS Statement: Those systems with pertinent positive or pertinent negative responses have been documented in the HPI. ROS Other: All systems not noted in ROS Statement are negative. Past Medical History Past Medical History: Hyperlipidemia, Hypertension History of Any Multi-Drug Resistant Organisms: None Reported Past Surgical History: Heart Catheterization With Stent Additional Past Surgical History / Comment(s): thumb surgery, Past Anesthesia/Blood Transfusion Reactions: No Reported Reaction Date of Last Stent Placement:: March 2001 Past Psychological History: No Psychological Hx Reported Smoking Status: Never smoker Past Alcohol Use History: Occasional Past Drug Use History: None Reported - Past Family History Father History Unknown: Yes Mother Family Medical History: Hypertension Additional Family Medical History / Comment(s): pacemaker. at age 86 Sister(s) Family Medical History: Hyperlipidemia General Exam Limitations: no limitations General appearance: alert, in no apparent distress Head exam: Present: atraumatic, normocephalic, normal inspection Eye exam: Present: normal appearance, EOMI. Absent: scleral icterus, conjunctival injection, periorbital swelling ENT exam: Present: normal exam, normal oropharynx, mucous membranes moist Neck exam: Present: normal inspection, full ROM. Absent: tenderness, meningismus, lymphadenopathy, thyromegaly Respiratory exam: Present: normal lung sounds bilaterally. Absent: respiratory distress, wheezes, rales, rhonchi, stridor, chest wall tenderness, accessory muscle use, decreased breath sounds Cardiovascular Exam: Present: regular rate. Absent: JVD GI/Abdominal exam: Present: soft. Absent: distended, tenderness, rigid Extremities exam: Present: full ROM, normal capillary refill. Absent: pedal edema Back exam: Present: normal inspection, full ROM. Absent: tenderness, CVA tenderness (R), CVA tenderness (L), rash noted Neurological exam: Present: alert, oriented X3, normal gait Psychiatric exam: Present: normal affect, normal mood Skin exam: Present: warm, dry, intact, normal color. Absent: rash, cyanosis, diaphoretic Course Vital Signs 11/09/21 11/09/21 11/09/21 11:00 11:23 12:58 Temperature 97.6 F 97.5 F L Pulse Rate 66 68 Respiratory 18 18 18 Rate Blood Pressure 139/76 135/75 O2 Sat by Pulse 99 98 Oximetry Medical Decision Making - Medical Decision Making 61-year-old well-appearing male presents with complaints of 9 days of body aches, fatigue, nausea and fever. He has not been vaccinated against coronavirus and is positive today. He was offered monoclonal antibody infusion and declined. Instructed to self quarantine for 10 days from symptom onset and 24 hours without a fever. Return to the emergency room for any new or worsening symptoms. Take vitamin C, vitamin D and zinc daily. He will follow up with his primary care doctor. He was case discussed with Dr. España - Lab Data Lab Results 11/09/21 Range/Units 11:36 Influenza Type A (PCR) Not Detected (Not Detectd) Influenza Type B (PCR) Not Detected (Not Detectd) RSV (PCR) Not Detected (Not Detectd) SARS-CoV-2 (PCR) Detected A (Not Detectd) Disposition Clinical Impression: COVID-19 Disposition: HOME SELF-CARE Condition: Good Instructions (If sedation given, give patient instructions): Coronavirus Disease 2019 (COVID-19) Additional Instructions: Increase your fluid intake. Return to the emergency room with any new or worsening symptoms. Self quarantine for 10 days from symptom onset and 24 hours without a fever. Is patient prescribed a controlled substance at d/c from ED?: No Referrals: Ronaldo Dunbar MD [Primary Care Provider] - 1-2 days Time of Disposition: 12:53
[2021-11-09 13:04] VITALS: BP 135/75; PULSE 68; TEMP 97.5
== END 2021-11-09 12:58 | disposition home or self-care (01) ==
LOC: EC 10:27
DX: U07.1 COVID-19 (principal); I10 Essential (primary) hypertension; E78.5 Hyperlipidemia, unspecified; Z91.09 Other allergy status, other than to drugs and biological substances; Z79.899 Other long term (current) drug therapy; Z79.82 Long term (current) use of aspirin
CPT/HCPCS: 87636; 99284